=== PATIENT | female | born 1990 | race African-American/Black ===

== ENCOUNTER 2023-02-19 12:52 | Emergency (ER) | payer BC, SELFPAY ==
[2023-02-19 13:07] VITALS: BP 138/87; PULSE 98; RESP 16; TEMP 36.8; O2SAT 100
--- NOTE | 2023-02-19 13:12 | ECG_ITS ---
Measurements Intervals [place] Rate: 80 P: 53 [place]: 156 QRS: 14 QRSD: 83 T: 30 QT: 361 QTc: 417 Interpretive Statements SINUS RHYTHM WITH SINUS ARRHYTHMIA POSSIBLE LEFT ATRIAL ENLARGEMENT [-0.1mV P WAVE IN V1/V2] POSSIBLE LEFT VENTRICULAR HYPERTROPHY [VOLTAGE CRITERIA PLUS LAE OR QRS WIDENING] NO PREVIOUS ECG AVAILABLE FOR COMPARISON Electronically Signed On 02-19-2023 15:31:14 CDT by Esperanza Crockett M.D.
--- NOTE | 2023-02-19 13:14 | ED.CHESTPAIN ---
HPI - Chest Pain General Chief Complaint: Chest Pain Stated Complaint: chest pain Time Seen by Provider: 02/19/23 13:06 Source: patient and RN notes reviewed Mode of arrival: ambulatory Limitations: no limitations History of Present Illness HPI narrative: Patient presents today complaining of sternal chest pain radiating under the right breast since this morning and states she feels that she can not take a deep breath. Denies injury or trauma, nausea, vomiting, numbness or tingling in the extremities, abdominal pain. Denies cardiac or pulmonary history. Currently rates her pain 3/10, which increases to 7/10 with movement. She tried a dose of ibuprofen around 630 this morning without relief. Denies recent illness. Related Data Allergies Allergy/AdvReac Type Severity Reaction Status Date / Time No Known Allergies Allergy Unverified 12/11/17 13:22 Review of Systems Review of Systems: CONSTITUTIONAL: Denies body aches, fever, chills, or sweats. EYES: Denies visual changes, redness, or discharge. ENT: Denies rhinorrhea, congestion, sore throat, or otalgia. CARDIOVASCULAR: Denies palpitations, or edema.+ chest pain RESPIRATORY: Denies cough or dyspnea. Can't take deep breath GASTROINTESTINAL: Denies abdominal pain, nausea, vomiting, or diarrhea. GENITOURINARY: Denies dysuria or hematuria. SKIN: Denies rash, itching, or wounds. MUSCULOSKELETAL: Denies back pain, joint pain, or myalgia. NEUROLOGIC: Denies headache, numbness, tingling, or weakness. PSYCH: Denies depression or anxiety. PMFSH Comments At time of signature, I have reviewed and agree with nursing past medical, surgical, social and family history unless otherwise noted. Please see nursing chart for further information. There is no relevant family history pertinent to the presenting complaint Exam Narrative: GENERAL: Well-appearing, well-nourished, and in no acute distress. HEAD: Normocephalic, atraumatic. EYES: EOMI. No redness or drainage. Conjunctivae normal. ENT: Mucous membranes pink and moist. NECK: Normal AROM. Supple. No lymphadenopathy. CHEST: No respiratory distress. Clear to auscultation. Sternum is tender to palpation. This tenderness extends under the right breast. HEART: Regular rate and rhythm. No murmur appreciated. Normal peripheral pulses. ABDOMEN: Soft, nontender, nondistended, normal active bowel sounds. EXTREMITIES: Normal range of motion. No edema. SKIN: Warm, dry, no rash. Capillary refill normal. Normal skin turgor. NEURO: No focal deficits. Alert and oriented x3. Gait steady. PSYCH: Normal affect. No signs of depression or anxiety. Course Course Level of Care: Express Care Visit Vital Signs Vital signs: Vital Signs Temperature 98.3 F 02/19/23 13:07 Pulse Rate 98 02/19/23 13:07 Respiratory Rate 16 02/19/23 13:07 Blood Pressure 138/87 02/19/23 13:07 Pulse Oximetry 100 02/19/23 13:07 Temperature 98.3 F 02/19/23 13:07 Pulse Rate 98 02/19/23 13:07 Respiratory Rate 16 02/19/23 13:07 Blood Pressure 138/87 02/19/23 13:07 Pulse Oximetry 100 02/19/23 13:07 Reviewed MDM - Chest Pain MDM Narrative Medical decision making narrative: Discussed EKG results with patient and diagnostic capability and limitations of [facility]. She declines transfer to the ER for further evaluation at this time. Understands that she can go to the ER at any time with any worsening symptoms. No prescription medications indicated at this time. Anticipatory guidance given. Differential Diagnosis Differential diagnosis: Likely atypical chest pain, st elevation myocardial infarction, costochondritis, chest pain and other ([place], pleurisy, musculoskeletal chest pain) ECG Data EKG #1: Attestation: I personally reviewed and interpreted this ECG as follows: ECG completion date: 02/19/23 ECG completion time: 13:21 Prior ECG tracings: available for review Interpretation: Sinus rhy
== END 2023-02-19 13:40 | disposition home or self-care (01) ==
PROVIDERS: Emergency Provider Nurse Practitioner
DX: R07.89 Other chest pain (principal)
CPT/HCPCS: 93005; 99203; G0463

== ENCOUNTER 2024-02-26 09:31 | Emergency (ER) | payer OTHER, SELFPAY ==
[2024-02-26 09:41] VITALS: BP 126/88; PULSE 92; RESP 16; TEMP 36.4; O2SAT 98
--- NOTE | 2024-02-26 10:01 | ED.GENADULT ---
HPI - General Adult General Chief complaint: Upper Respiratory Infection Stated complaint: sore throat, nausea, vom, diarrhea Time Seen by Provider: 02/26/24 09:49 Source: patient and RN notes reviewed Mode of arrival: ambulatory Limitations: no limitations History of Present Illness HPI narrative: Patient presents today complaining of increasing her allergy symptoms last night. She woke up this morning she was experiencing nausea, congestion, sore throat. She has also vomited once and had an episode of diarrhea. No blood or mucus in her stool. Denies cough, known fever, abdominal pain. She currently rates her pain 5/10 and has taken a dose of Benadryl without much relief. States boyfriend is also sick with similar upper respiratory symptoms. They both just got back from vacation few days ago. Related Data Home Medications Medication Instructions Recorded Confirmed norgestimate 0.25 mg-ethinyl 1 tablet PO DAILY 02/26/24 02/26/24 estradiol 35 mcg tablet (Estarylla) Allergies Allergy/AdvReac Type Severity Reaction Status Date / Time No Known Allergies Allergy Unverified 02/26/24 09:39 Review of Systems Review of Systems: CONSTITUTIONAL: Denies body aches, fever, chills, or sweats.+ fatigue EYES: Denies visual changes, redness, or discharge. ENT: Denies rhinorrhea, or otalgia.+ pain sore throat, congestion CARDIOVASCULAR: Denies chest pain, palpitations, or edema. RESPIRATORY: Denies cough or dyspnea. GASTROINTESTINAL: Denies abdominal pain. + nausea, vomiting, diarrhea GENITOURINARY: Denies dysuria or hematuria. SKIN: Denies rash, itching, or wounds. MUSCULOSKELETAL: Denies back pain, joint pain, or myalgia. NEUROLOGIC: Denies headache, numbness, tingling, or weakness. PSYCH: Denies depression or anxiety. PMFSH Comments At time of signature, I have reviewed and agree with nursing past medical, surgical, social and family history unless otherwise noted. Please see nursing chart for further information. There is no relevant family history pertinent to the presenting complaint Exam Narrative: GENERAL: Well-appearing, well-nourished, and in no acute distress. HEAD: Normocephalic, atraumatic. EYES: EOMI. No redness or drainage. Conjunctivae normal. ENT: Mucous membranes pink and moist. Nares clear. No rhinorrhea. TMs normal bilaterally. Throat normal. Uvula midline. NECK: Normal AROM. Supple. No lymphadenopathy. CHEST: No respiratory distress. Clear to auscultation. HEART: Regular rate and rhythm. No murmur appreciated. ABDOMEN: Soft, nontender, nondistended, normal active bowel sounds. EXTREMITIES: Normal range of motion. No edema. SKIN: Warm, dry, no rash. Capillary refill normal. Normal skin turgor. NEURO: No focal deficits. Alert and oriented x3. Gait steady. PSYCH: Normal affect. No signs of depression or anxiety. Course Course Level of Care: Express Care Visit Vital Signs Vital signs: Vital Signs Temperature 97.5 F L 02/26/24 09:41 Pulse Rate 92 02/26/24 09:41 Respiratory Rate 16 02/26/24 09:41 Blood Pressure 126/88 02/26/24 09:41 Pulse Oximetry 98 02/26/24 09:41 Temperature 97.5 F L 02/26/24 09:41 Pulse Rate 92 02/26/24 09:41 Respiratory Rate 16 02/26/24 09:41 Blood Pressure 126/88 02/26/24 09:41 Pulse Oximetry 98 02/26/24 09:41 Reviewed Medical Decision Making MDM Narrative Medical decision making narrative: Rapid strep negative. Culture pending. Symptoms likely viral in etiology. Discussed [id number] medication use and duration of illness. Prescription for Zofran sent to pharmacy. Anticipatory guidance given. Differential Diagnosis Differential Diagnosis: Seasonal allergies, URI, strep throat, pharyngitis, gastroenteritis, traveler's diarrhea, food poisoning Vital Signs Vital Signs: Vital Signs Temperature 97.5 F L 02/26/24 09:41 Pulse Rate 92 02/26/24 09:41 Respiratory Rate 16 02/26/24 09:41 Blood Pr
== END 2024-02-26 10:20 | disposition home or self-care (01) ==
PROVIDERS: Emergency Provider Nurse Practitioner
DX: B34.9 Viral infection, unspecified (principal)
CPT/HCPCS: 87081; 87880; 99213; G0463